=== PATIENT | male | born 1980 | race Caucasian/White ===

== ENCOUNTER 2019-06-27 22:26 | Emergency (ER) | payer OTHER ==
[~2019-06-27] VITALS: Ht 182.9 cm; Wt 113.6 kg
[2019-06-27 22:41] VITALS: BP 141/70
--- NOTE | 2019-06-27 23:17 | RAD ---
Left thumb 3 views. HISTORY: Dropped metal on thumb, pain and swelling. 3 views were taken of the left thumb. There is a subluxation or partial dislocation at the first metacarpal phalangeal joint. I do not have an old study for comparison. There is slight deformity of the head of the first metatarsal, an old injury is possible. An acute fracture is not identified. IMPRESSION: 1. Subluxation or partial dislocation at the first metacarpal phalangeal joint. 2. Slight deformity possible old injury. Electronically signed by: Jac Leone MD (06/27/2019 11:14 PM) [id number]
--- NOTE | 2019-06-27 23:39 | PHYS DOC ---
Past History Past Medical History: No Pertinent History Past Surgical History: Other Additional Past Surgical Histo: LEFT KNEE MENISCUS AND ACL REPAIR Additional Smoking Information: CHEWING TOBACCO Alcohol Use: None Adult General Chief Complaint Chief Complaint: THUMB HPI HPI 38-year-old male presents with left thumb pain. The patient was working with metal. The person who was helping him carry a bar dropped the bar and it hit him in the left thumb. He felt a pop and had pain. He has swelling of the left thumb with decreased flexion and abduction. He denies any other injuries or complaints at this time. Review of Systems Review of Systems Constitutional: Denies fever or chills [] Eyes: Denies change in visual acuity, redness, or eye pain [] HENT: Denies nasal congestion or sore throat [] Respiratory: Denies cough or shortness of breath [] Cardiovascular: No additional information not addressed in HPI [] GI: Denies abdominal pain, nausea, vomiting, bloody stools or diarrhea [] : Denies dysuria or hematuria [] Musculoskeletal: Left thumb pain[] Integument: Denies rash or skin lesions [] Neurologic: Denies headache, focal weakness or sensory changes [] Endocrine: Denies polyuria or polydipsia [] All other systems were reviewed and found to be within normal limits, except as documented in this note. Allergies Allergies Allergies Coded Allergies Type Severity Reaction Last Updated Verified No Known Drug Allergies 06/27/19 No Physical Exam Physical Exam Constitutional: Well developed, well nourished, no acute distress, non-toxic appearance. [] HENT: Normocephalic, atraumatic, bilateral external ears normal, oropharynx moist, no oral exudates, nose normal. [] Eyes: PERRLA, EOMI, conjunctiva normal, no discharge. [] Neck: Normal range of motion, no tenderness, supple, no stridor. [] Cardiovascular:Heart rate regular rhythm, no murmur [] Lungs & Thorax: Bilateral breath sounds clear to auscultation [] Abdomen: Bowel sounds normal, soft, no tenderness, no masses, no pulsatile masses. [] Skin: Warm, dry, no erythema, no rash. [] Back: No tenderness, no CVA tenderness. [] Extremities: Left thumb with swelling at the first metacarpophalangeal joint. It appears to be slightly anterior.[] Neurologic: Alert and oriented X 3, normal motor function, normal sensory function, no focal deficits noted. [] Psychologic: Affect normal, judgement normal, mood normal. [] Current Patient Data Vital Signs Vital Signs Date Time Temp Pulse Resp B/P (MAP) Pulse Ox O2 Delivery O2 Flow Rate FiO2 06/27/19 22:41 98.4 77 18 141/70 (93) 98 Room Air EKG EKG [] Radiology/Procedures Radiology/Procedures [] Impressions: Left thumb 3 views. HISTORY: Dropped metal on thumb, pain and swelling. 3 views were taken of the left thumb. There is a subluxation or partial dislocation at the first metacarpal phalangeal joint. I do not have an old study for comparison. There is slight deformity of the head of the first metatarsal, an old injury is possible. An acute fracture is not identified. IMPRESSION: 1. Subluxation or partial dislocation at the first metacarpal phalangeal joint. 2. Slight deformity possible old injury. Electronically signed by: Davey Collazo MD (06/27/2019 11:14 PM) [id number] DICTATED AND SIGNED BY: DAVEY COLLAZO MD DATE: 06/27/19 2314 CC: BANG QURESHI DO; PCP,NO ~ Course & Med Decision Making Course & Med Decision Making Pertinent Labs and Imaging studies reviewed. (See chart for details) Patient does appear to have a partially dislocated left thumb. We will reduce it in the ED. There does not appear to be fracture. After multiple attempts, I was unable to fully reduce the patient's thumb. I called [facility] for guidance. Dr. Wallace thought it best to have the patient come to the emergency room tonight. I offered this option to the patient. Since the patient is a prisoner he has to get special permission. He does not believe they will be able to give permission at 3:00 in the morning. He would prefer to have it splinted and go back to the long term and try to make an appointment for tomorrow. We will place him in a thumb spica and he'll be discharged. [] Dragon Disclaimer Dragon Disclaimer This electronic medical record was generated, in whole or in part, using a voice recognition dictation system. Departure Departure: Impression: Primary Impression: Dislocated thumb Disposition: 01 HOME, SELF-CARE Condition: STABLE Referrals: PCP,NO (PCP) Patient Instructions: Thumb Dislocation, [id number] Problem Qualifiers Primary Impression: Dislocated thumb Encounter type: initial encounter Laterality: left Qualified Codes: S63.105A - Unspecified dislocation of left thumb, initial encounter BANG QURESHI DO Jun 27, 2019 23:39
--- NOTE | 2019-06-27 23:59 | RAD ---
Left thumb 2 views. HISTORY: Post reduction 2 views the left thumb shows positioning is unchanged compared to the prior image. There is no definite fracture. IMPRESSION: 1. No change from the prior image. Electronically signed by: Jac Leone MD (06/27/2019 11:56 PM) [id number]
--- NOTE | 2019-06-28 03:07 | RAD ---
Left thumb 2 views. HISTORY: Post reduction 2 views were taken the left thumb. There has been no change in alignment or position compared to the original images was partial dislocation or subluxation. The pattern may be chronic as there is deformity of the head of the first metatarsal and of the proximal phalanx of the thumb. IMPRESSION: 1. No change. Electronically signed by: Jac Leone MD (06/28/2019 3:04 AM) [id number]
== END 2019-06-28 03:21 | disposition home or self-care (01) ==
LOC: ER 22:26 → EEVIPCON 22:26 → ER 06-28 03:21
DX: S63.115A Dislocation of metacarpophalangeal joint of left thumb, initial encounter (principal); F17.220 Nicotine dependence, chewing tobacco, uncomplicated; W20.8XXA Other cause of strike by thrown, projected or falling object, initial encounter; Y93.89 Activity, other specified; Y92.89 Other specified places as the place of occurrence of the external cause; Y99.8 Other external cause status
CPT/HCPCS: 26700; 73140; 99284